=== PATIENT | female | born 1965 | race Hispanic/Latino ===

== ENCOUNTER 2019-09-06 05:42 | Observation (INO) | payer OTHER ==
[2019-09-05 16:06] VITALS: BP 107/48
[2019-09-05 16:13] LABS: BASOPHILS % (AUTO) 0.5 % (0.0-5.0); EOSINOPHILS % (AUTO) 2.4 % (0.0-8.0); HEMATOCRIT 34.8 % (36-48); LYMPHOCYTES % (AUTO) 45.4 % (21.0-51.0); MEAN CORPUSCULAR HGB CONC 34.9 g/dL (32.0-36.0); MEAN CORPUSCULAR VOLUME 85.9 fL (79-99); MONOCYTES % (AUTO) 5.4 % (3.0-13.0); NEUTROPHILS % (AUTO) 46.3 % (40.0-77.0); PLATELET COUNT (AUTO) 298 K/uL (130-400); RED BLOOD CELL COUNT(AUTO) 4.06 MIL/uL (4.00-5.50); RED CELL DISTRIBUTION WIDTH 16.4 % (11.0-15.5); WHITE BLOOD COUNT (AUTO) 6.9 K/uL (4.8-10.8)
[2019-09-06] VITALS (25 sets, daily range): BP systolic 79–118; BP diastolic 37–67
[~2019-09-06] VITALS: Ht 162.6 cm; Wt 80.8 kg
[2019-09-06] MEDS ORDERED: LACTATED RINGERS 1000ML 1,000 ML IV SCH (06:00)
[2019-09-06] MEDS: CEFAZOLIN SODIUM 1 GM VIAL IVP SCH ×2 (06:00→09:45)
[2019-09-06] MEDS ORDERED: DEXMEDETOMIDINE HCL 200 MCG in SODIUM CHLORIDE 0.9% 50 ML IV SCH (08:30)
[2019-09-06] MEDS ORDERED: ONDANSETRON HCL 4 MG/2 ML VIAL ONE (09:35)
[2019-09-06] MEDS ORDERED: MIDAZOLAM HCL 1 MG/ML 2ML VIAL ONE (09:35)
[2019-09-06] MEDS ORDERED: MAGNESIUM SULFATE 1 GM/2 ML VIAL ONE (09:39)
[2019-09-06] MEDS ORDERED: KETAMINE 50MG/ML SYRINGE 50 MG/ML DISP.SYRIN IV ONE (09:39)
[2019-09-06] MEDS ORDERED: PROPOFOL 10 MG/ML 20ML VIAL IV ONE (09:44)
[2019-09-06] MEDS ORDERED: ROCURONIUM 10MG/1ML SYR 10 MG/ML ML ONE (09:45)
[2019-09-06] MEDS ORDERED: DEXAMETHASONE SOD PHOSPHATE 10MG/ML 1ML VIAL ONE (10:03)
[2019-09-06] MEDS ORDERED: GLYCOPYRROLATE 1 MG/5 ML SYRINGE ONE (10:31)
[2019-09-06] MEDS ORDERED: FENTANYL CITRATE PF 50 MCG/1 ML 2ML VIAL ONE (10:48)
[2019-09-06] MEDS ORDERED: NEOSTIGMINE 5MG/5ML SYR IV ONE (11:09)
[2019-09-06] MEDS ORDERED: KETOROLAC TROMETHAMINE 30MG/ML ONE (11:17)
[2019-09-06] MEDS ORDERED: MEPERIDINE-PF 75 MG/ML SYG IM PRN (13:15)
[2019-09-06] MEDS ORDERED: DOCUSATE SODIUM 100 MG CAP PO PRN (13:15)
[2019-09-06] MEDS ORDERED: BISACODYL 10 MG SUPP.RECT RC PRN (13:15)
[2019-09-06] MEDS ORDERED: IBUPROFEN 600 MG TABLET PO PRN (13:15)
[2019-09-06] MEDS ORDERED: PROMETHAZINE HCL 25 MG/ML 1ML AMPULE IM PRN ×4 (13:15→13:45)
[2019-09-06] MEDS ORDERED: SIMETHICONE 80 MG TAB.CHEW PO PRN (13:15)
[2019-09-06] MEDS: ACETAMINOPHEN-CODEINE 300/30MG TAB PO PRN (13:33)
[2019-09-06] MEDS ORDERED: ACETAMINOPHEN EXTRA STRENGTH 500 MG TABLET PO PRN (13:45)
[2019-09-06] MEDS ORDERED: GENTAMICIN SULFATE/PF 10 MG/1 ML 2ML IV SCH (13:45)
[2019-09-06] MEDS ORDERED: CLINDAMYCIN 900 MG/D5% WATER 50 ML IV SCH (13:45)
[2019-09-06] MEDS ORDERED: MEPERIDINE-PF 50 MG/ML SYG IM PRN (13:45)
[2019-09-06] MEDS ORDERED: GENTAMICIN SULFATE 120 MG in SODIUM CHLORIDE 0.9% 100 ML IV SCH (14:00)
[2019-09-06] MEDS ORDERED: MEPERIDINE-PF 50 MG/ML SYG ONE (16:45)
[2019-09-06] MEDS ORDERED: MEPERIDINE-PF 25 MG/ML SYG ONE (16:45)
[2019-09-06] MEDS: DEXTROSE 5 %-0.45 % NACL 1,000 ML IV SCH (19:19)
[2019-09-06] MEDS ORDERED: GENTAMICIN 80 MG/NS 100 ML PB 100 ML IV SCH (21:45)
[2019-09-07] MEDS ORDERED: SIMETHICONE 80 MG TAB.CHEW PO PRN (02:00)
[2019-09-07] MEDS ORDERED: HYDROCODONE/ACETAMINOPHEN 5/325 MG TAB PO PRN (02:00)
[2019-09-07] MEDS ORDERED: IBUPROFEN 800 MG TAB PO PRN (02:00)
[2019-09-07] MEDS ORDERED: ACETAMINOPHEN-CODEINE 300/30MG TAB PO PRN (02:00)
[2019-09-07] MEDS: DEXTROSE 5 %-0.45 % NACL 1,000 ML IV SCH (03:02)
[2019-09-07 03:50] VITALS: BP 102/58
[2019-09-07] MEDS: ACETAMINOPHEN-CODEINE 300/30MG TAB PO PRN (05:19)
[2019-09-07 05:26] LABS: MEAN CORPUSCULAR HEMOGLOBIN 30.2 pg (27.0-33.0); MEAN CORPUSCULAR HGB CONC 35.3 g/dL (32.0-36.0); MEAN CORPUSCULAR VOLUME 85.7 fL (79-99); PLATELET COUNT (AUTO) 249 K/uL (130-400); RED BLOOD CELL COUNT(AUTO) 3.38 MIL/uL (4.00-5.50); RED CELL DISTRIBUTION WIDTH 16.4 % (11.0-15.5); WHITE BLOOD COUNT (AUTO) 10.9 K/uL (4.8-10.8)
[2019-09-07 07:18] VITALS: BP 105/57
--- NOTE | 2019-09-07 08:05 | NUR ---
ROUNDING ON PATIENT. NEW ORDERS RECEIVED, PT OKAY FOR DISCHARGE. DISCHARGE POC DISCUSSED WITH PT. PT VOICED UNDERSTANDING.
[2019-09-07] MEDS ORDERED: FLU VACC QS2019-20 36MOS UP/PF 60 MCG/0.5 ML ML IM ONE (09:45)
--- NOTE | 2019-09-07 10:50 | NUR ---
PATIENT AMBULATING IN HALLWAY ACCOMPANIED BY . NO C/O DIZZINESS REPORTED,STEADY GAIT NOTED.
[2019-09-07 11:19] VITALS: BP 98/61
--- NOTE | 2019-09-07 12:00 | NUR ---
INSTRUCTIONS READ AND EXPLAINED TO PATIENT. PRESCRIPTION FOR TYLENOL#3 AND FERROUS SULFATE 325MG HANDED TO PATIENT. INCISION CARE REVIEWED. QUESTIONS INVITED AND ANSWERED. PT VOICED UNDERSTANDING.
[2019-09-09] MEDS ORDERED: KETAMINE 50MG/ML SYRINGE 50 MG/ML DISP.SYRIN IV ONE (13:05)
== END 2019-09-07 12:40 | disposition home or self-care (01) ==
LOC: DAH 05:42 → WSH 05:43
PROVIDERS: ADMIT Obstetrics & Gynecology; ATTEND Obstetrics & Gynecology
DX: N92.1 Excessive and frequent menstruation with irregular cycle (principal); D64.9 Anemia, unspecified; N85.2 Hypertrophy of uterus; K46.9 Unspecified abdominal hernia without obstruction or gangrene; Z98.891 History of uterine scar from previous surgery
CPT/HCPCS: 36415 ×2; 57268; 58552; 84703; 85025; 85027; 86850; 86900; 86901; 88307; 96372; A4215 ×2; A4221; A4222; A4223; A4351; A4649 ×3; A4663; A6260; C1769 ×2; G0378 ×23; J0690; J1100; J1580; J1885; J2175 ×2; J2250; J2405; J2550 ×2; J2704; J2710; J3010; J3475; J3490 ×3; J7030; J7120 ×2

== ENCOUNTER → 2023-12-26 | Outpatient (CLI) | payer OTHER | END | disposition home or self-care (01) | LOC: SHCH 14:24 | PROVIDERS: ATTEND Internal Medicine Cardiovascular Disease | DX: I87.2 Venous insufficiency (chronic) (peripheral) (principal); I73.9 Peripheral vascular disease, unspecified; I87.1 Compression of vein | CPT/HCPCS: 93925; 93970 ==